=== PATIENT | female | born 1960 | race Caucasian/White ===

== ENCOUNTER 2021-10-04 09:23 | Emergency (ER) | payer MEDICARE, OTHER ==
[~2021-10-04] VITALS: Ht 172.7 cm; Wt 102.1 kg
--- NOTE | ~2021-10-04 | EMS ---
[address] [address] EMS Patient Care Report Name: ANA ZUÑIGA Room #: DEP SHWETA De Santiago#: [id number] Admission: 10/04/21 Attend Phys: Discharge: 10/04/21 Date of : 58 Report #: [id number] THIS REPORT FOR: //name// Report Transmitted: 10/05/2021 11:10 EMS Care Summary [place], [place]/[facility] Incident [id number] @ 10/04/2021 08:51 Incident Location [address] [place] [address] Patient ANA ZUÑIGA Male, 61 Years 1960 Patient Address [address] [place] [address] Patient History Cancer, Unspecified,Hypertension (HTN),Depression, Patient Allergies No known allergies, Patient Medications Sulfamethoxazole, Fentanyl, Senna, Albuterol, Melatonin, Levothyroxine, Furosemide, Pantoprazole, Finasteride, Duloxetine, Metoprolol, Lyrica, Bactrim, Trazodone, Acyclovir, Potassium, Cortisone, Dexamethasone, Chief Complaint PAIN AFTER FALL Disposition Transported No Lights/[place] Dispatch Reason Falls Transported To [facility] Narrative SCENE: ON ARRIVAL PT FOUND LYING IN BED IN ROOM AT ADDRESS PROVIDED. PT IS AWAKE AND ALERT WITH A GCS OF 15. PT REPORTS A FALL AT AN UNKNOWN TIME LAST [facility] [address] [place] [address] EMS Patient Care Report Name: ANA ZUÑIGA Room #: DEP Jonnathan#: [id number] Admission: 10/04/21 Attend Phys: Discharge: 10/04/21 Date of : 58 Report #: [id number] NIGHT. PT REPORTS NO RECOLLECTION OF THE EVENTS SURROUNDING THE FALL, ONLY THAT STAFF DIDN'T CHECK ON PT UNTIL PT WAS FOUND ON THE FLOOR THIS AM. PT REPORTS 4 STAFF MEMBERS PLACED PT BACK IN BED. PT C/O BILATERAL KNEE AND SHOULDER PAIN. WELL MID BACK PAIN. PT SLID TO EMS STRETCHER. AMBULANCE: PT INITIALLY REQUESTS TRANSPORT TO , BUT THEN REQUESTS TRANSPORT TO A CLOSER FACILITY. EMS [facility] PT REQUESTS TRANSPORT TO [facility]. VITALS MONITORED. NO CHANGES Initial Vitals @09:04P: 110,R: 18,BP: 121/80,Pain: 4/10,GCS: 15,Revised Trauma: 12, @09:15P: 111,R: 18,BP: 118/72,GCS: 15,Revised Trauma: 12, Assessments @09:04MENTAL:No Abnormalities,SKIN:No Abnormalities,HEENT:Head/Face: No Abnormalities,Eyes: No Abnormalities,Neck/Airway: No Abnormalities,LUNG SOUNDS:General: No Abnormalities,Left Upper: No Abnormalities,Right Upper: No Abnormalities,Left Lower: No Abnormalities,Right Lower: No Abnormalities,ABDOMEN:General: No Abnormalities,Left Upper: No Abnormalities,Right Upper: No Abnormalities,Left Lower: No Abnormalities,Right Lower: No Abnormalities,PELVIS//GI:No Abnormalities,EXTREMITIES:Right Leg: Other,Left Leg: Other,Right Arm: Other,Left Arm: Other,PULSE:NEURO:No Abnormalities,@09:12MENTAL:No Abnormalities,SKIN:No Abnormalities,HEENT:Head/Face: No Abnormalities,Eyes: No Abnormalities,Neck/Airway: No Abnormalities,LUNG SOUNDS:General: No Abnormalities,Left Upper: No Abnormalities,Right Upper: No Abnormalities,Left Lower: No Abnormalities,Right Lower: No Abnormalities,ABDOMEN:General: No Abnormalities,Left Upper: No Abnormalities,Right Upper: No Abnormalities,Left Lower: No Abnormalities,Right Lower: No Abnormalities,PELVIS//GI:No Abnormalities,EXTREMITIES:Left Leg: Other,Right Leg: Other,Right Arm: Other,Left Arm: Other,PULSE:NEURO:No Abnormalities, Impression Acute Pain, not elsewhere classified Procedures @09:04 ALS Assessment Response: UnchangedSucceeded @09:06 Stretcher Response: Unchanged Timeline 08:49,Call Received 08:49,Dispatch Notified 08:51,Dispatched 08:53,En Route 09:01,On Scene [address] [address] EMS Patient Care Report Name: ANA ZUÑIGA Room #: DEP SHWETA De Santiago#: [id number] Admission: 10/04/21 Attend Phys: Discharge: 10/04/21 Date of : 58 Report #: [id number] 09:04,At Patient 09:04,ALS Assessment,Response: UnchangedSucceeded, 09:04,BP: 121/80 M,PULSE: 110,RR: 18 R,SPO2: Ox,ETCO2: ,BG: ,PAIN: 4,GCS: 15, 09:06,Stretcher,Response: Unchanged 09:11,Depart Scene 09:15,BP: 118/72 M,PULSE: 111,RR: 18 R,SPO2: Ox,ETCO2: ,BG: ,PAIN: ,GCS: 15, 09:19,At Destination 09:30,Call Closed Disclaimer v1.1 Copyright 2020 [employer] This EMS Care Summary contains data elements from the applicable legal record (which may be displayed differently). It is designed to provide pertinent information for the following purposes: continuity of care, clinical quality, and state data reporting. The complete legal record is available to ED staff and administrators of the receiving hospital in [employer]'s Patient Tracker. All data is provided "as is."
[2021-10-04 11:50] LABS: WBC 2.3 thou/uL (4.0-11.0)
[2021-10-04 11:52] LABS: HEMATOCRIT 24.6 % (37.0-47.0); HEMOGLOBIN 8.3 gm/dL (12.0-15.0); MCH 31.4 pg (26.0-34.0); MCHC 33.8 g/dL (28.0-37.0); MCV 92.9 fL (80.0-100.0); RBC 2.64 mil/uL (4.20-5.00); RDW 16.8 % (10.5-14.5)
[2021-10-04 12:10] LABS: CREATININE 1.3 mg/dL (0.6-1.0); POTASSIUM 4.1 mmol/L (3.5-5.1)
[2021-10-04 12:15] LABS: CALCIUM 12.4 mg/dL (8.5-10.1)
[2021-10-04 14:09] LABS: ABSOLUTE NEUTROPHILS 1.9 thou/uL (1.4-8.2); ANISOCYTOSIS 1+; ATYPICAL LYMPHS 1 %; POIKILOCYTOSIS SLIGHT; POLYCHROMASIA SLIGHT
[2021-10-04 14:10] LABS: PLATELET COUNT 20 thou/uL (150-400); PLATELET ESTIMATE MARKEDLY DECREASED
[2021-10-04 16:07] VITALS: BP 132/71
--- NOTE | 2021-10-04 17:29 | EKG ---
[address] [address] [place] [address] ELECTROCARDIOGRAM REPORT Name: ANA ZUÑIGA Room #: DEP SHWETA De Santiago#: [id number] Admission: 10/04/21 Attend Phys: Discharge: 10/04/21 Date of : 58 Report #: [id number] [facility] ED Test Date: 2021-10-04 Test Time: 13:26:22 Pat Name: ANA ZUÑIGA Department: Room: Gender: F Sba Business Development Officer: scar : 1960 Requested By: Angelina Walter Order Number: [id number] MD: Jose Manuel Hutchison Measurements Intervals [place] Rate: 111 P: 28 MS: 147 QRS: -27 QRSD: 141 T: -30 QT: 366 QTc: 498 Interpretive Statements Sinus tachycardia Vntricular premature complexes IVCD, consider atypical RBBB Inferior infarct, old No previous ECG available for comparison Electronically Signed On 10-04-2021 17:28:47 COCOA POWDER MIXER OPERATOR by Jose Manuel Hutchison [email or web address] <ELECTRONICALLY SIGNED> By: Jose Manuel Hutchison MD, [facility] 10/04/21 1728 1326 1326 Jose Manuel Hutchison MD, FACC /EPI
== END 2021-10-04 16:09 ==
LOC: ER 09:23
PROVIDERS: Emergency Medicine
DX: R55 Syncope and collapse (principal); D64.9 Anemia, unspecified; E83.52 Hypercalcemia; Z91.048 Other nonmedicinal substance allergy status; Z91.09 Other allergy status, other than to drugs and biological substances

== ENCOUNTER 2021-11-09 02:55 | Inpatient (IN) | payer MEDICARE, OTHER ==
[~2021-11-09] VITALS: Ht 188 cm; Wt 90.7 kg
--- NOTE | ~2021-11-09 | EMS ---
[address] [address] EMS Patient Care Report Name: ANA ZUÑIGA Room #: 170-12 [facility] IN M.R.#: [id number] Admission: 11/09/21 Attend Phys: Oz Mart MD Discharge: 11/09/21 Date of : 58 Report #: [id number] THIS REPORT FOR: //name// Report Transmitted: 11/16/2021 08:26 EMS Care Summary [place], [place]/[facility] Incident [id number] @ 11/09/2021 02:19 Incident Location [address] [place] [address] 109-A Patient ANA ZUÑIGA Male, 61 Years 1960 Patient Address [address] [place] [address] Patient History Cancer, Unspecified,Hypertension (HTN),Depression, Patient Allergies No known allergies, Patient Medications Finasteride, Potassium, Lyrica, Melatonin, Furosemide, Senna, Bactrim, Acyclovir, Metoprolol, Dexamethasone, Albuterol, Fentanyl, Cortisone, Duloxetine, Trazodone, Sulfamethoxazole, Pantoprazole, Levothyroxine, Chief Complaint SOA/AMS Disposition Transported Lights/[place] Dispatch Reason Cardiac Arrest/ Transported To [facility] Narrative Upon arrival PT was laying in the supine position on PA bed. PT had A chief complaint of altermental status and respiratory distress. Patient was assisted [address] [address] EMS Patient Care Report Name: ANA ZUÑIGA Room #: 170-[facility] IN M.R.#: [id number] Admission: 11/09/21 Attend Phys: Oz Mart MD Discharge: 11/09/21 Date of : 58 Report #: [id number] to stretch her and taken to back of ambulance for further medical evaluation and intervention patient was then monitored while on route to hospital for any change in condition. Initial Vitals @02:33P: 120,CO: 0,SpO2: 99, @02:30P: 115,R: 18,BP: 126/63,Pain: 6/10,GCS: 8,Glucose: 195,CO: 1,SpO2: 98,Revised Trauma: 10, @02:40P: 102,R: 1,BP: 96/62,Pain: 6/10,GCS: 10,SpO2: 99,Revised Trauma: 8, Assessments @03:00MENTAL:SKIN:Pale,HEENT:Head/Face: Other,Eyes: No Abnormalities,Neck/Airway: No Abnormalities,LUNG SOUNDS:ABDOMEN:PELVIS//GI:EXTREMITIES:PULSE:NEURO: Impression Acute Respiratory Distress (Dyspnea) Procedures @02:33 12-Lead ECG @02:27 ALS Assessment Response: UnchangedSucceeded @02:33 IV Therapy - Saline Lock 0cc (20 ga) Site: Hand-Left Response: UnchangedSucceeded Timeline 02:18,Call Received 02:18,Dispatch Notified 02:19,Dispatched 02:20,En Route 02:26,On Scene 02:27,At Patient 02:27,ALS Assessment,Response: UnchangedSucceeded, 02:30,BP: 126/63 M,PULSE: 115,RR: 18 R,SPO2: 98 Ox,ETCO2: ,B,PAIN: 6,GCS: 8, 02:33,IV Therapy - Saline Lock 0cc 20 ga Site: Hand-Left,Response: UnchangedSucceeded, 02:33,12-Lead ECG, 02:33,BP: / M,PULSE: 120,RR: R,SPO2: 99 Ox,ETCO2: ,BG: ,PAIN: ,GCS: , 02:40,Depart Scene 02:40,BP: 96/62 M,PULSE: 102,RR: 1 R,SPO2: 99 Ox,ETCO2: ,BG: ,PAIN: 6,GCS: 10, 02:48,At Destination 03:10,Call Closed Disclaimer v1.1 Copyright 2021 [employer] [place] [address] EMS Patient Care Report Name: ANA ZUÑIGA Room #: 170-12 [facility] IN M.R.#: [id number] Admission: 11/09/21 Attend Phys: Oz Mart MD Discharge: 11/09/21 Date of : 58 Report #: [id number] This EMS Care Summary contains data elements from the applicable legal record (which may be displayed differently). It is designed to provide pertinent information for the following purposes: continuity of care, clinical quality, and state data reporting. The complete legal record is available to ED staff and administrators of the receiving hospital in [facility]'s Patient Tracker. All data is provided "as is."
[2021-11-09 03:26] LABS: HEMATOCRIT 20.2 % (42.0-52.0); HEMOGLOBIN 7.1 gm/dL (14.0-18.0); MCH 31.6 pg (26.0-34.0); MCHC 35.3 g/dL (28.0-37.0); MCV 89.6 fL (80.0-100.0); RBC 2.26 mil/uL (4.50-6.00); RDW 15.3 % (10.5-14.5)
[2021-11-09 03:31] LABS: CALCIUM 8.4 mg/dL (8.5-10.1); CREATININE 1.7 mg/dL (0.7-1.3); POTASSIUM 4.5 mmol/L (3.5-5.1)
[2021-11-09 03:33] LABS: PLATELET COUNT 7 thou/uL (150-400); WBC 1.8 thou/uL (4.0-11.0)
[2021-11-09 03:42] LABS: ALBUMIN 2.4 g/dL (3.4-5.0); TOTAL BILIRUBIN 0.7 mg/dL (0.2-1.0); TOTAL PROTEIN 7.9 g/dL (6.4-8.2)
[2021-11-09 03:46] LABS: APTT 39.4 Seconds (24.5-32.8); INR 2.44; PROTIME 25.5 Seconds (10.5-12.1)
[2021-11-09 03:56] LABS: BE(vivo) -12.9 mmol/L (-2 to +3); HCO3 10.6 mmol/L (22.0-26.0); sO2 99.7 % (92.0-98.0)
[2021-11-09 03:57] LABS: PCO2 20.9 mmHg (35.0-45.0)
[2021-11-09 03:58] LABS: pH 7.333 (7.360-7.450)
[2021-11-09] MEDS ORDERED: ACETAMINOPHEN RECTAL (04:31)
[2021-11-09] MEDS ORDERED: ACETAMINOPHEN PO (04:32)
[2021-11-09] MEDS ORDERED: DROXIDOPA200 MG PO (04:32)
[2021-11-09] MEDS ORDERED: FENTANYL1 EAC1 TRANSDERM ×2 (04:33→04:34)
[2021-11-09] MEDS ORDERED: DRIZALMA SPRINK20 MG PO (04:33)
[2021-11-09] MEDS ORDERED: HYDROCORTISONE5 MG PO (04:34)
[2021-11-09] MEDS ORDERED: HYDROCORTISONE10 MG PO (04:52)
[2021-11-09] MEDS ORDERED: XYZAL5 MG PO (04:53)
[2021-11-09] MEDS ORDERED: CORLANOR5 MG PO (04:53)
[2021-11-09] MEDS ORDERED: LEVO-T50 MCG PO (04:54)
[2021-11-09] MEDS ORDERED: MELATONIN10 M3 PO (04:55)
[2021-11-09] MEDS ORDERED: MORPHINE S20 MG/5 ML SUBLING (04:57)
[2021-11-09] MEDS ORDERED: PROTONIX40 M4 PO (04:58)
[2021-11-09] MEDS ORDERED: OXYCODONE HCL5 MG PO (04:58)
[2021-11-09] MEDS ORDERED: ONDANSETRON HCL4 M2 PO (04:58)
[2021-11-09] MEDS ORDERED: MIRALAX119 GM PO (04:59)
[2021-11-09 06:10] LABS: URINE BILIRUBIN NEGATIVE (Negative); URINE BLOOD TRACE (Negative); URINE CLARITY CLEAR; URINE COLOR YELLOW; URINE GLUCOSE-RANDOM* NEGATIVE (Negative); URINE KETONES TRACE (Negative); URINE LEUKOCYTES-REFLEX NEGATIVE (Negative); URINE NITRITE-REFLEX NEGATIVE (Negative); URINE PROTEIN (DIPSTICK) 2+ (Negative); URINE SPECIFIC GRAVITY >= 1.030 (1.005-1.035); URINE UROBILINOGEN 0.2 E.U./dl (0.2-1.0)
[2021-11-09 06:13] LABS: ABSOLUTE NEUTROPHILS 0.8 thou/uL (1.4-8.2); ANISOCYTOSIS 1+; NUCLEATED RBCS 1 /100WBC; PLATELET ESTIMATE MARKEDLY DECREASED; POIKILOCYTOSIS 1+
[2021-11-09 06:18] LABS: AMP/METHAMP Negative (Negative); BARBITURATES Negative (Negative); BENZODIAZEPINES Negative (Negative); COCAINE Negative (Negative); METHADONE Negative (Negative); OPIATES POSITIVE (Negative); PCP Negative (Negative)
[2021-11-09 06:29] LABS: SQUAMOUS >10 Many /LPF (0-3)
[2021-11-09 06:31] LABS: COARSE GRANULAR CASTS 0-3 Few /LPF (None Seen); FINE GRANULAR CASTS 0-3 Few /LPF (None Seen)
[2021-11-09 06:32] LABS: BACTERIA-REFLEX 1-9 Few /HPF (None Seen); CRYSTALS None Seen /LPF (None Seen); URINE RBC 3-10 Few /HPF (NONE SEEN); URINE WBC-REFLEX 0-5 Rare /HPF (0-5)
[2021-11-09 06:33] LABS: AMORPHOUS URATES Few /LPF (None Seen)
--- NOTE | 2021-11-09 06:48 | NUR ---
RECEIVED A CALL PT HAS SIGNED ON WITH [facility] , PT IS A DNR THERE WILL BE SOMEONE FOR COMPANY CALLING TO VERIFY THIS
--- NOTE | 2021-11-09 07:56 | EKG ---
[place] [address] [facility] [place] [address] ELECTROCARDIOGRAM REPORT Name: ANA ZUÑIGA Room #: 170-12 ADM IN M.R.#: [id number] Admission: 11/09/21 Attend Phys: Oz Mart MD Discharge: Date of : 58 Report #: [id number] [facility] ED Test Date: 2021-11-09 Test Time: 03:13:32 Pat Name: ANA ZUÑIGA Department: Room: 170 Gender: M Voltage Inspector: myke : 1960 Requested By: Angelina Walter Order Number: [id number] MD: Mohit Juarez Measurements Intervals [place] Rate: 128 P: 64 VT: 117 QRS: -82 QRSD: 139 T: 5 QT: 340 QTc: 496 Interpretive Statements Sinus tachycardia Ventricular premature complex Right bundle branch block Inferior infarct, old Baseline wander in lead(s) I Compared to ECG 10/04/2021 13:26:22 Ventricular premature complex(es) now present Myocardial infarct finding still present Electronically Signed On 11-09-2021 7:56:41 DEPUTY ATTORNEY GENERAL by Mohit Juarez [email or web address] <ELECTRONICALLY SIGNED> By: Mohit Juarez MD, FAC 11/09/21 0756 0313 0313 Mohit Juarez MD, [facility] /EPI
--- NOTE | 2021-11-09 07:56 | EKG ---
[place] [address] [address] [employer] [address] ELECTROCARDIOGRAM REPORT Name: ANA ZUÑIGA Room #: 170-12 ADM IN M.R.#: [id number] Admission: 11/09/21 Attend Phys: Oz Mart MD Discharge: Date of : 58 Report #: [id number] [facility] ED Test Date: 2021-11-09 Test Time: 03:16:22 Pat Name: ANA ZUÑIGA Department: Room: 170 12 Gender: M Coding Manager: myke : 1960 Requested By: Angelina Walter Order Number: [id number] MD: Mohit Juarez Measurements Intervals [place] Rate: 135 P: 51 WA: 123 QRS: -69 QRSD: 119 T: -18 QT: 316 QTc: 474 Interpretive Statements Sinus tachycardia Multiform ventricular premature complexes Right bundle branch block Inferior infarct, old Compared to ECG 11/09/2021 03:13:32 No significant changes Electronically Signed On 11-09-2021 7:56:46 SPA TECHNICIAN by Mohit Juarez [email or web address] <ELECTRONICALLY SIGNED> By: Mohit Juarez MD, [facility] 11/09/21 075 5 5 Mohit Juarez MD, [facility] /EPI
--- NOTE | 2021-11-09 11:58 | NUR ---
Talked with ME
--- NOTE | 2021-11-09 12:27 | NUR ---
Talked with Kat at [facility] who asked to put saline in eyes and closed them and to please not release body to anybody except donna. T asked to call them back and let them know if pt will have to go to [facility]
[2021-11-09 14:30] VITALS: BP 50/23
== END 2021-11-09 08:20 | DRG 65 ==
LOC: ER 02:55 → EROBS 05:52
PROVIDERS: Emergency Medicine; ADMIT Hospitalist; ATTEND Hospitalist
DX: I62.01 Nontraumatic acute subdural hemorrhage (principal); D61.818 Other pancytopenia; K92.2 Gastrointestinal hemorrhage, unspecified; C90.00 Multiple myeloma not having achieved remission; N17.9 Acute kidney failure, unspecified; I62.03 Nontraumatic chronic subdural hemorrhage; Z66 Do not resuscitate; Z20.822 Contact with and (suspected) exposure to COVID-19; I46.9 Cardiac arrest, cause unspecified; Z51.5 Encounter for palliative care; Z88.8 Allergy status to other drugs, medicaments and biological substances; Z91.048 Other nonmedicinal substance allergy status